=== PATIENT | male | born 1980 | race Caucasian/White ===

== ENCOUNTER → 2024-01-30 06:28 | Day surgery (SDC) | payer OTHER, SELFPAY | LOC: GI 06:28 | PROVIDERS: ATTENDING PHYSICIAN Internal Medicine | DX: K22.70 Barrett's esophagus without dysplasia (principal); K31.A0 Gastric intestinal metaplasia, unspecified; R13.10 Dysphagia, unspecified | CPT/HCPCS: 43249; 88305; 88342 ==

== ENCOUNTER → 2024-04-26 06:24 | Day surgery (SDC) | payer OTHER, SELFPAY | LOC: GI 06:24 | PROVIDERS: ATTENDING PHYSICIAN Internal Medicine | DX: K22.70 Barrett's esophagus without dysplasia (principal) | CPT/HCPCS: 43239; 88305 ==

== ENCOUNTER → 2024-06-27 16:21 | Outpatient (REF) | payer OTHER, SELFPAY | LOC: HWRAD 16:21 | PROVIDERS: ATTENDING PHYSICIAN Chiropractor; FAMILY PHYSICIAN Student in an Organized Health Care Education/Training Program | DX: M54.2 Cervicalgia (principal); M54.6 Pain in thoracic spine | CPT/HCPCS: 72050; 72072 ==

== ENCOUNTER 2024-11-28 05:25 | Inpatient (IN) | payer OTHER, SELFPAY ==
[2024-11-27 23:51] VITALS: BP 169/96
[2024-11-28] VITALS (23 sets, daily range): BP systolic 139–190; BP diastolic 76–109; BMI 33.1
--- NOTE | 2024-11-28 01:03 | ED.GENMED ---
History of Present Illness
General
Chief Complaint: Swelling
Source: patient
Exam Limitations: none
Time Seen by Provider: 11/28/24 00:27
Nursing documentation reviewed up to this point in time: agreed with
History of Present Illness
History of Present Illness:
44-year-old male presents to the emergency with right facial swelling. Patient states that approximately 3 weeks ago he had 4 dental posts placed. Since that there have been no complications. He was started on Augmentin about a week ago for
nonrelated infection. Tonight around 7 PM he woke up with facial swelling. Patient denies difficulty breathing or difficulty swallowing. Has no other complaints. Takes amlodipine
Past History
Past History
ED Past Medical History: GERD, HTN, Other (has had back pain since 02/2011. Had MRI with 20% compression fx T5. Had f/u MRI done 2 weeks ago and states he now has 50% compmression fx T6, herniated disc and arthritis in the spine.) and Other
(Pinzon's esophagus, diverticulitis, GERD)
ED Past Surgical History: Cholecystectomy and Other ([place] teeth)
Social History
Tobacco: Smoker
Alcohol: Daily
Drug: None
Personal: Single
Living: with family
Employment: Employed
Phy Exam
General Physical Exam
General Presentation: well appearing and moderate distress
General age: appears stated age
General Skin: warm and dry
General Habitus: normal
General Mental: alert
ENT Exam
ENT Exam: neck supple, swallowing well and other (Right-sided facial swelling)
Cardiovascular Exam
Cardiovascular Exam: regular rate/rhythm and no edema
Musculoskeletal Exam
Musculoskeletal Exam: full ROM
Skin Exam
Skin Exam: normal color and warm/dry
Psychiatric Exam
Psychiatric Exam: normal mood/affect
Scores
Heart Failure Risk
Heart Failure Risk Score: Not Applicable
Sepsis
Sepsis Screening
Sepsis Assessment: Sepsis Ruled Out
Sepsis Screen
Sepsis Screen: Sepsis Ruled Out
Date: 11/28/24
Time: 06:15
Course
Orders/Labs/Results
Orders:
Orders
11/28/24 00:55
CT Facial Bones W/ Iv Contrast Urgent
Comment:
Reason For Exam: right swelliing'
11/28/24 00:59
CRP [C-Reactive Protein] Urgent
Complete Blood Count/With Diff Urgent
Lactic Acid Q4H
Comment: CANCEL 2nd LACTIC ACID IF 1st LACTIC ACID IS LESS THAN 2
Sedimentation Rate [Erythrocyte Sed Rate] Urgent
11/28/24 01:07
Diphenhydramine [Benadryl] 25 mg IV NOW STA
11/28/24 01:25
Acetaminophen Urgent
Comment: ADDED
Alcohol Urgent
Comprehensive Metabolic Panel Urgent
Hepatitis A IgM Antibody Urgent
Hepatitis B Core Ab, IgM Urgent
Hepatitis B Surface Antibody Urgent
Hepatitis B Surface Antigen Urgent
Hepatitis C Antibody Urgent
Lipase Urgent
Comment: ADD ON
Magnesium Urgent
Comment: ADDED
Procalcitonin Urgent
Comment: REDRAW
11/28/24 04:06
Piperacillin/Tazo 4.5 Gram [Zosyn] 4.5 gram in 100 ml IV NOW
11/28/24 04:10
Vancomycin [Vancocin] 2,000 mg 0.9% Sodium Chloride 500 ml [Nss] 500 ml IV NOW
11/28/24 04:11
Potassium Chloride [KCl] 40 meq 0.9% Sodium Chloride 250 ml [Nss] 250 ml IV NOW
11/28/24 04:49
Ketorolac [Toradol] 15 mg IV NOW STA
11/28/24 05:00
Add On- LAB Stat
Tests Added?: acetaminophen level, etoh level
Flush (0.9% Sodium Chloride) [Flush (Nss)] See Dose Instructions IV PER PROTOCOL
11/28/24 05:03
US Abdomen Complete/Upper Urgent
Comment:
Reason For Exam: new transaminitis, eval biliary obstruction
11/28/24 05:05
Admit/Transfer Patient As Directed
Co-Sign Provider:
Level of Care: Inpatient admission
Assign to:: Medical/Surgical
Physician / Group: hospitalist
Diagnosis: cellulitis
Reason for Hospitalization: cellulitis
Expected length of stay greater than two midnights?: Yes
ELOS- Estimated Length of Stay in days: 2
I certify the patient meets the requirements for IP care: Yes
PRN Pain Medication Management As Directed
May give lesser potent ordered pain med per pt: Yes
preference::
Protocol:: Medication orders for pain may be administered in a
manner that supports deferring to patient preference
when the pt is:
- Requesting an ordered lesser potent pain medication.
Least to most potent pain medications are defined
as: acetaminophen < NSAID < tramadol < opioids
(morphine, oxycodone, hydromorphone).
- Requesting a lesser dose of the same medication IF
ORDERED.
- Requesting a less intrusive route of administration
if both routes are prescribed by the provider (PO <
IV).
11/28/24 05:06
Code Status As Directed
Resuscitation Status: Full Code
11/28/24 05:09
Potassium Chloride [KCl] 40 meq PO NOW STA
Abnormal Lab Results
11/28/24 11/28/24
00:59 01:25
RBC 4.24 L 10^6/uL
(4.70-6.10)
Hgb 12.8 L g/dL
(13.0-18.0)
Hct 38.0 L %
(39.0-52.0)
RDW 17.7 H %
(11.5-14.5)
Plt Count 111 L 10^3/uL
(130-400)
Absolute Monos (auto) 0.8 H 10^3/uL
(0.1-0.6)
Neutrophils % 35.5 L %
(42.2-75.2)
Monocytes % 13.9 H %
(1.7-9.3)
Sodium 148 H mmol/L
(135-145)
Potassium 2.6 L* mmol/L
(3.5-5.1)
Chloride 109 H mmol/L
(98-107)
Carbon Dioxide 31 H mmol/L
(22-30)
BUN 8 L mg/dl
(9-20)
Creatinine 0.6 L mg/dL
(0.7-1.3)
Calcium 8.3 L mg/dl
(8.4-10.2)
AST 280 H U/L
(17-59)
ALT 107 H U/L
(0-50)
Lipase 347 H U/L
(23-300)
Acetaminophen < 10 L ug/ml
(10-30)
11/28/24 00:59
11/28/24 05:01
Vital Signs
Initial and Last Documented VS:
Initial Vital Signs
Temp Pulse Resp Pulse Ox
98.6 F 114 20 95
11/27/24 23:49 11/27/24 23:49 11/27/24 23:49 11/27/24 23:49
Last Documented Vital Signs
Temp Pulse Resp BP Pulse Ox
98.6 F 88 19 155/98 96
11/27/24 23:49 11/28/24 04:00 11/28/24 04:00 11/28/24 04:00 11/28/24 04:00
*Radiology
Radiology exam reviewed: radiology read reviewed
*Pulse Oximetry
Patient hypoxic: no
*Critical Care Note
Total Time (30-74mins, 75-104mins- exclusive of procedures): Not Applicable
ED Attending Note
-
Portions of this chart may have been created with voice recognition software.� Occasional wrong word or��sound alike� substitutions may have occurred due to the inherent limitations of voice recognition software.
Discharge Plan
Departure
Patient Disposition: Admit
Date of Disposition: 11/28/24
Time of Disposition: 04:08
Admit to: Telemetry
Presentation/result/management discussed w/ accepting MD/DO: Hospitalist
Discharge Problem:
Hypokalemia, Cellulitis of face, Alcohol intoxication
Interventions
Interventions:
*Risk Screen - Suicide Last Done: 11/27/24 23:45
*General Assessment Last Done: 11/27/24 23:51
*Neglect/Abuse Screening Last Done: 11/27/24 23:45
*ED- Fall Risk Assessment Last Done: 11/28/24 00:47
*ED COVID-19 Vaccine History Last Done: 11/27/24 23:51
ED- Cardiac Assessment Last Done: 11/28/24 00:47
ED- Pulmonary Assessment Last Done: 11/28/24 00:47
ED-Skin Assessment Last Done: 11/28/24 00:47
[2024-11-28] MEDS: BENADRYL 25 MG IV (01:11)
[2024-11-28 01:15] LABS: % Basophils 0.7 % (0-2); % Eosinophils 2.1 % (0-6); % Immature Granulocytes 0.5 % (0-0.5); % Lymphocytes 47.3 % (20.5-51.1); % Monocytes 13.9 % (1.7-9.3); % Neutrophils 35.5 % (42.2-75.2); Absolute Eosinophils 0.1 10^3/uL (0-0.7); Absolute Lymphocytes 2.7 10^3/uL (1.2-3.4); Absolute Monocytes 0.8 10^3/uL (0.1-0.6); Absolute Neutrophils 2.1 10^3/uL (1.4-6.5); Hemoglobin 12.8 g/dL (13.0-18.0); Mean Corp Hgb Conc. 33.7 g/dL (33.0-37.0); Mean Corpuscular Hgb 30.2 pg (27.0-31.0); Mean Corpuscular Volume 89.6 fL (80.0-94.0); Mean Platelet Volume 9.7 fL (7.4-10.4); Nucleated Red Blood Cells % 0 % (-); Platelet Count 111 10^3/uL (130-400); Red Blood Cell Count 4.24 10^6/uL (4.70-6.10); Red Cell Dist. Width 17.7 % (11.5-14.5); White Blood Cell Count 5.8 10^3/uL (4.8-10.8)
[2024-11-28 01:32] LABS: C-Reactive Protein < 5.00 mg/L (0.0-10.00)
[2024-11-28 01:40] LABS: Erythrocyte Sed Rate 4 mm/hour (0-20)
[2024-11-28 01:51] LABS: ALT (SGPT) 107 U/L (0-50); AST (SGOT) 280 U/L (17-59); Albumin 3.5 g/dl (3.5-5.0); Alkaline Phosphatase 101 U/L (38-126); Blood Urea Nitrogen 8 mg/dl (9-20); Calcium 8.3 mg/dl (8.4-10.2); Carbon Dioxide 31 mmol/L (22-30); Chloride 109 mmol/L (98-107); Estimated Creatinine Clearance > 125 ml/min; Glucose 89 mg/dl (70-99); Potassium 2.6 mmol/L (3.5-5.1); Sodium 148 mmol/L (135-145); Total Bilirubin 0.6 mg/dl (0.2-1.3); Total Protein 6.4 g/dl (6.3-8.2); eGFR > 60.00
[2024-11-28 01:59] LABS: Procalcitonin < 0.05 ng/ml (0.0-0.25)
[2024-11-28] MEDS: ZOSYN 100 IV (04:10)
--- NOTE | 2024-11-28 04:33 | HPS.HSE ---
Family Physician
-
Family Physician: Jaky Rizo MD
Chief Complaint
-
Lip swelling and pain
History of Present Illness
This is a 45-year-old male with past medical history significant for alcohol dependence, last alcohol drink is as well as 2 years ago, GERD, gallstones s/p cholecystectomy, childhood asthma, hypertension who presents to the emergency department with
approximately 1 day of left-sided upper lip swelling and pain.
Patient reported that over the last 10 days had URI symptoms with cough congestion shortness of breath hence completed 10-day course of Augmentin. Patient reports improvement in symptoms and resolution of his cough. He also received steroids.
Patient reports that he had dental implants done about 2 to 3 weeks ago. Outside of that no other recent changes. He tried to go to sleep at night and then awoke with swelling pain and some redness of his left upper lip. He has no knowledge of
any bleeding. He denies any biting.
He denies any recent diarrhea, he denies vomiting. He denies any recreational drug use. He showed me that his previous labs in October were all normal with normal LFTs and normal electrolytes and BUN/creatinine.
He denies any abdominal pain. He does report some left-sided subscapular pain that is likely related to his URI and cough. He has not had any fevers or chills since the swelling. He denies any numbness or tingling.
In the emergency department he was afebrile, blood pressure was 155/98 with a pulse of 88 and was satting 96% on room air. His CBC was unremarkable. Electrolytes notable for a potassium of 2.6 but otherwise unremarkable. He is AST is now elevated
to 80 and ALT 102 from recent baselines of 20 and 17. Inflammatory markers were negative.
A CT of the face shows right premaxillary/upper lip soft tissue swelling without evidence of organized collection, findings represent cellulitis and/or phlegmon formation. Airway remained patent, normal appearance of the orbits.
Medical History
Past Medical History
Past Medical History: Reports Other (GERD, HTN, Other (has had back pain since fall 02/2011. Had MRI with 20% compression fx T5. Had f/u MRI done 2 weeks ago and states he now has 50% compmression fx T6, herniated disc and arthritis in the spine.) a)
Past Surgical History: Reports Cholecystectomy
Social History
Tobacco: Former Smoker
Alcohol: Former
Personal: Single
Family History
Family History: Not pertinent
Allergies / Home Medications
Allergies reflects when Allergies were last updated in [email or web address].
Home Medications with original date entered in [email or web address]
Allergy/Medication List:
Allergies
Allergy/AdvReac Type Severity Reaction Status Date / Time
mint Allergy HEADACHE Verified 11/27/24 23:46
orange Allergy HEADACHE Verified 11/27/24 23:46
pollen extracts Allergy nasal Verified 11/27/24 23:46
symptoms -
seasonal
allergies
Home Medications
Wellbutrin 300 mg tablet, 300 mg p.o. daily
Esomeprazole 20 mg tablet, 20 mg p.o. daily
Review of Systems
-
History Source: Patient
Constitutional: Reports No Symptoms
EENT: Reports Mouth Pain
Respiratory: Reports No Symptoms
Cardiac: Reports No Symptoms
Abdomen/GI: Reports No Symptoms
: Reports No Symptoms
Musculoskeletal: Reports No Symptoms
Skin: Reports No Symptoms
Neurological: Reports No Symptoms
Endocrine: Reports No Symptoms
Hematologic/Lymphatic: Reports No Symptoms
Psych: Reports No Symptoms
Physical Exam
Vital Signs
Vital Signs
Temp Pulse Resp BP Pulse Ox
98.6 F 88 19 155/98 96
11/27/24 23:49 11/28/24 04:00 11/28/24 04:00 11/28/24 04:00 11/28/24 04:00
Physical Exam
General: Well Developed, Well Nourished, No Apparent Distress and Comfortable
HEENT: NormoCephalic, Anicteric, Moist mucous membranes, Atraumatic and Other (left upper lip swelling, tenderness to palpation, mild erythema, no tongue swelling, no exudate noted )
Respiratory: Clear
Cardiac: S1/S2 and Regular Rhythm
Breast: Deferred by me
GI: Soft, Non Tender, Non Distended and Normal Bowel Sounds
Rectal: Deferred by Provider
Genito-urinary: Deferred by me
Musculoskeletal: No Clubbing, No Cyanosis and No Edema
Skin: Warm
Neuro: AO x 3
Hematologic/Lymphatic: No Lymphadenopathy
Psych: Calm
Laboratory Results
-
11/28/24 00:59
11/28/24 01:25
Laboratory Results
Lactic Acid Cancelled 11/28/24 05:00
Total Bilirubin 0.6 mg/dl (0.2-1.3) 11/28/24 01:25
AST 280 U/L (17-59) H 11/28/24 01:25
ALT 107 U/L (0-50) H 11/28/24 01:25
Alkaline Phosphatase 101 U/L (38-126) 11/28/24 01:25
Data Reviewed
-
CT Scan: Report Reviewed by me
Lab Data: Labs Reviewed by me
Old Records: Reviewed
Impression/Plan
-
IMPRESSION:
44 y.o male with h/o etoh dependence and elevated lfts, now sober for 2 years presenting with lip pain and swelling. CT scan c/w cellulitis. Recent dental implants on the upper teetch. He has been on augmentin for URI for the last 10 days. In
addition he has lab abnormalitie with hypokalemia and transaminitis. Bilirubin and alk phos normal.
PLAN:
1. Cellulitis - cellulitis w/o abscess. Developed lesion despite already being on augmentin. Not unreasonable to develop new infection on abx but less likely
- admit to med/surg
- cover with vancomycin for now
- pain control
- ID consultation
2. Hypokalemia - K 2.6, was normal in October. Denies fluid losses or low intake. No diuretics. No etoh
- check mag level
- replete K IV and PO
- increase K intake (diet and or oral supplementation daily)
3. Transaminitis - new transaminitis since October 2024. AST/ALT normal at that time. Denies etoh stating last drink was in 2022. Reports dental implants one month ago and was on tylenol 1g q 4 -6 hours daily for about 1 week. He has since come
off that but due to recent URI has been taking tylenol pm 500mg to 1 g HS. Possible repeated supratherapeutic tylenol but does not strictly meets criteria, will consider acetylcysteine only if tylenol level > 20 mcg/ml. Other etiology is DILI due
to augmentin
- check acetaminophen level, etoh level
- ruq u/s and hepatitis panel
- trend lfts
- if etoh negative GI consultation, otherwise likely etoh induced transaminitis and place on MSAS withdrawal protocol
DVT PPX - lovenox sq
Code status - Full Code
[2024-11-28] MEDS: VANCOCIN 540 MG IV (04:44)
[2024-11-28] MEDS: KCL 270 MEQ IV (04:46)
[2024-11-28] MEDS: TORADOL 15 MG IV (05:22)
[2024-11-28] MEDS: KCL 40 MEQ PO (05:22)
[2024-11-28 05:47] LABS: Acetaminophen < 10 ug/ml (10-30); Magnesium 1.7 mg/dl (1.6-2.3)
[2024-11-28] MEDS: FLUSH (NSS) 1 FLUSH IV (06:00)
[2024-11-28 06:06] LABS: Alcohol 396 mg/dl; Lipase 347 U/L (23-300)
[2024-11-28 06:56] LABS: Lipase 286 U/L (23-300)
--- NOTE | 2024-11-28 09:28 | W.PN.HOSP.TC ---
Today's Communication/Plan
-
Continue vancomycin pending ID evaluation.
Alcohol withdrawal protocol.
Check magnesium, hemoglobin A1c.
Replete potassium
Follow LFT closely
Assessment / Plan
Assessment / Plan
Impression:
Facial cellulitis nonpurulent.
Alcohol use disorder.
Alcohol withdrawal.
Hepatic steatosis with elevated transaminases.
Hypokalemia
Obesity with BMI of 33
Plan:
Functional cellulitis without purulence.
No evidence of generalized infection, sepsis ruled out.
No clinical or radiologic evidence of airway involvement or compromise
CT scan with no evidence of bony abnormalities or collection.
Denies trauma
Recent implants
Reported progressive fascial edema, pain despite of Augmentin therapy prior to admission per
Initiated on vancomycin, status post single dose of Zosyn with dramatic improvement since admission.
ID evaluation pending.
Check hemoglobin A1c
Elevated transaminases
Hepatic steatosis on ultrasound.
Likely multifactorial due to alcohol, possibly in conjunction with DILI related to Tylenol and Augmentin
Tylenol level undetectable.
Continue follow-up closely.
Hydration.
Minimize potentially hepatotoxic medications.
Alcohol use disorder, suspect severe
Alcohol level on admission over 390
Patient reports withdrawal symptoms including chills and tremors.
Initiated on alcohol withdrawal protocol with MSAS/lorazepam, phenobarbital taper.
Hypokalemia.
Check magnesium level.
Replete.
Follow with BMP
Anticipated Discharge: 24 - 48 hours
Subjective/Interval History
-
Date of Service: November 28, 2024
Objective Data
-
Labs:
Laboratory Results
11/28/24 11/28/24 11/28/24
00:59 01:25 05:01
WBC 5.8
Hgb 12.8 L
Hct 38.0 L
Plt Count 111 L
Sodium Cancelled 148 H Cancelled
Potassium Cancelled 2.6 L* Cancelled
Chloride Cancelled 109 H Cancelled
Carbon Dioxide Cancelled 31 H Cancelled
BUN Cancelled 8 L Cancelled
Creatinine Cancelled 0.6 L Cancelled
Glucose Cancelled 89 Cancelled
Calcium Cancelled 8.3 L Cancelled
Total Bilirubin Cancelled 0.6
AST Cancelled 280 H
ALT Cancelled 107 H
Alkaline Phosphatase Cancelled 101
11/28/24
14:00
WBC
Hgb
Hct
Plt Count
Sodium Pending
Potassium Pending
Chloride Pending
Carbon Dioxide Pending
BUN Pending
Creatinine Pending
Glucose Pending
Calcium Pending
Total Bilirubin
AST
ALT
Alkaline Phosphatase
Vital Signs:
Vital Signs
Temp Pulse Resp BP Pulse Ox
98.4 F 102 25 160/102 98
11/28/24 08:02 11/28/24 08:02 11/28/24 08:02 11/28/24 08:02 11/28/24 08:02
Physical Exam
-
General: Well Developed and No Apparent Distress
HEENT: Normocephalic, Atraumatic, Moist Mucous Membranes and Other (Mild erythema, edema and induration in the right upper lip area. No fluctuance. No ulcers)
Respiratory: Clear to Auscultation
Cardiac: Regular Rhythm and S1/S2; Negative Murmur, Rub or Gallop
GI: Soft, Nontender, Nondistended and Normal Bowel Sounds; Negative Organomegaly
Rectal: Deferred by Provider
Musculoskeletal: No Clubbing, No Cyanosis and No Edema
Skin: Negative Rash
Neuro: Awake, Alert, Oriented, Tremors and Nonfocal/Grossly Intact
[2024-11-28] MEDS: PHENOBARBITAL 104 MG IV (09:29)
[2024-11-28] MEDS: NSS 1000 IV ×2 (09:43→21:44)
[2024-11-28] MEDS: FOLVITE 1 MG PO (09:49)
[2024-11-28] MEDS: PROTONIX 40 MG PO (09:49)
[2024-11-28] MEDS: KCL 20 MEQ PO ×2 (09:49→21:17)
[2024-11-28] MEDS: THIAMINE INJECTION 200 MG IV ×2 (09:49→21:16)
--- NOTE | 2024-11-28 09:53 | PHA.VAN.IN ---
Assessment
- Assessment
Renal Function: Appears similar to baseline (0.6)
Concomitant Antimicrobials: Piperacillin/Tazobactam x1 dose
AUC Dosing Plan
- Dosing Variables
Dosing Weight (kg): 98.6
Dosing CrCl (ml/min): 125
Vd coefficient (L/kg): 0.6
- Empiric Dosing
Initial / Loading Dose: Vanco 2000mg loading administered 11/28/24 0444
Maintenance Regimen: Vanco 1500mg Q12H Starting 11/28/24 1800
Estimated AUC (mcg*h/mL): 507
Estimated Peak (mcg*h/mL): 34.9
Estimated Trough (mcg/ml): 11.2
Estimated Half Life (H): 6.4
- Monitoring
No levels ordered at this time: Consider in the next few days
Pharmacokinetics Vancomycin I
- -
Patient Age: 44
Patient Sex: Male
Vancomycin Day #: 1
Indication: Skin And Soft Tissue
Requesting Provider: Deana
Height / Weight:
Height 5 ft 8 in
Actual Weight 98.6 kg
- Vital Signs / Lab Results
Temp Pulse Resp BP Pulse Ox
98.4 F 102 25 160/102 98
11/28/24 08:02 11/28/24 08:02 11/28/24 08:02 11/28/24 08:02 11/28/24 08:02
Lab Results - Hematology
11/28/24
00:59
WBC 5.8
Lab Results - Chemistry
11/28/24 11/28/24 11/28/24
00:59 01:25 05:01
BUN Cancelled 8 L Cancelled
Creatinine Cancelled 0.6 L Cancelled
Estimated Creat Clear Cancelled > 125 Cancelled
Albumin Cancelled 3.5
11/28/24 11/28/24
00:59 05:00
Lactic Acid 1.0 Cancelled
[2024-11-28] MEDS: WELLBUTRIN XL (24 hour extended release) 300 MG PO (10:56)
[2024-11-28] MEDS: ATIVAN 1 MG IV ×4 (12:25→23:54)
[2024-11-28 15:17] LABS: Blood Urea Nitrogen 7 mg/dl (9-20); Calcium 7.6 mg/dl (8.4-10.2); Carbon Dioxide 26 mmol/L (22-30); Chloride 102 mmol/L (98-107); Estimated Creatinine Clearance > 125 ml/min; Glucose 84 mg/dl (70-99); Potassium 2.8 mmol/L (3.5-5.1); Sodium 141 mmol/L (135-145); eGFR > 60.00
[2024-11-28] MEDS: PHENOBARBITAL 97.5 MG IV ×2 (17:45→21:22)
[2024-11-28] MEDS: LOVENOX 40 MG SC (17:46)
[2024-11-28] MEDS: VANCOCIN 530 MG IV (17:51)
[2024-11-28 19:52] LABS: Hepatitis B Surface Antigen Negative (Negative)
[2024-11-28 20:10] LABS: Hepatitis B Surface Antibody Negative; Hepatitis C Antibody Negative (Negative)
[2024-11-28 21:19] LABS: Hepatitis A IgM Antibody Negative (Negative); Hepatitis B Core Ab, IgM Negative (Negative)
[2024-11-28] MEDS: LOPRESSOR 2.5 MG IV (23:54)
[2024-11-29] VITALS (7 sets, daily range): BP systolic 150–167; BP diastolic 94–102
[2024-11-29] MEDS: VANCOCIN 530 MG IV ×2 (06:05→17:09)
--- NOTE | 2024-11-29 08:04 | PHA.VAN.FU ---
Vancomycin Assessment / Plan
- Assessment
Renal Function: Stable (0.5)
WBC's are: WNL (5.8 (No new labs))
In the past 24 hrs, patient has been: Afebrile
- Dosing Plan
Continue: Vanco 1500mg Q12H
- Monitoring Plan
No level(s) ordered at this time: Consider in the next few days
- Follow Up
Pharmacy will continue to follow.
Vancomycin Follow UP
- -
Patient Age: 44
Patient Sex: Male
Vancomycin Day #: 2
Indication: Skin And Soft Tissue
Requesting Provider: Deana
Height / Weight:
Height 5 ft 8 in
Actual Weight 98.6 kg
- Vital Signs / Lab Results
Temp Pulse Resp BP Pulse Ox
98.4 F 82 18 150/95 98
11/29/24 07:15 11/29/24 07:15 11/29/24 07:15 11/29/24 07:15 11/29/24 07:15
Lab Results - Hematology
11/28/24
00:59
WBC 5.8
Lab Results - Chemistry
11/28/24 11/28/24 11/28/24
00:59 01:25 05:01
BUN Cancelled 8 L Cancelled
Creatinine Cancelled 0.6 L Cancelled
Estimated Creat Clear Cancelled > 125 Cancelled
Albumin Cancelled 3.5
11/28/24
14:39
BUN 7 L
Creatinine 0.5 L
Estimated Creat Clear > 125
Albumin
11/28/24 11/28/24
00:59 05:00
Lactic Acid 1.0 Cancelled
[2024-11-29] MEDS: WELLBUTRIN XL (24 hour extended release) 300 MG PO (08:24)
[2024-11-29] MEDS: PROTONIX 40 MG PO (08:24)
[2024-11-29] MEDS: THIAMINE INJECTION 200 MG IV ×2 (08:24→20:28)
[2024-11-29] MEDS: KCL 20 MEQ PO ×2 (08:24→20:25)
[2024-11-29] MEDS: FOLVITE 1 MG PO (08:24)
[2024-11-29] MEDS: PHENOBARBITAL 97.5 MG IV ×3 (08:25→22:20)
[2024-11-29] MEDS: NSS 1000 IV (08:33)
[2024-11-29] MEDS: ATIVAN 1 MG IV ×2 (09:01→20:44)
[2024-11-29] MEDS: NSS (PRESERVATIVE FREE) 0.5 ML IV (09:01)
--- NOTE | 2024-11-29 10:23 | W.PN.HOSP.TC ---
Today's Communication/Plan
-
Possible discharge later today or early tomorrow if continued to improve withdrawal symptoms
Assessment / Plan
Assessment / Plan
Impression:
This is a 45-year-old male with past medical history significant for alcohol dependence, GERD, gallstones s/p cholecystectomy, childhood asthma, hypertension who presents to the emergency department with approximately 1 day of left-sided upper lip
swelling and pain.
patient admitted with facial cellulitis failing outpatient Augmentin.� CT with no evidence of collection of bone involvement.� Dramatically improved with vancomycin.� Severe alcohol use disorder with impending DT.� Alcohol level 396, although
patient is already with tremors and chills.� Initiated on alcohol withdrawal protocol with IV phenobarbital.
Next day alcohol withdrawal improved, cellulitis improved, potassium still low replace
Assessment/Plan:
Facial cellulitis without purulence.
No evidence of generalized infection, sepsis ruled out.
No clinical or radiologic evidence of airway involvement or compromise
CT scan with no evidence of bony abnormalities or collection.
Denies trauma
Recent implants
Reported progressive fascial edema, pain despite of Augmentin therapy prior to admission per
Initiated on vancomycin, status post single dose of Zosyn with dramatic improvement since admission.
ID evaluation pending.
Hemoglobin A1c 5.0
Alcohol use disorder, suspect severe
Alcohol level on admission over 390
Patient reports withdrawal symptoms including chills and tremors.
Initiated on alcohol withdrawal protocol with MSAS/lorazepam, phenobarbital taper.
Will be discharged home gabapentin tapering.
Transaminitis
Abdominal ultrasound shows Mild hepatomegaly with findings suggesting diffuse fatty liver
Likely multifactorial due to alcohol, possibly in conjunction with DILI related to Tylenol and Augmentin
Tylenol level undetectable.
Continue to monitor.
Hypokalemia.
Replace and keep monitor.
Anxiety/depression.
Continue home medications.
History of DVT.
Total time spent on today's encounter was 65 minutes which included time spent in counseling the patient/family regarding diagnosis and treatment plan as listed above, goals of care, and symptom management. Case was discussed with nursing staff,
specialists, and care coordinators/case management. All labs and imaging personally reviewed by me. Remainder the time spent in detailed review of previous records, lab data, imaging, and other medical provider documentation.
Anticipated Discharge: Within 24 hours
Subjective/Interval History
-
Date of Service: November 29, 2024
Patient seen and examined at bedside, denies any chest pain or shortness of breath, no abdominal pain, no nausea, no vomiting, no diarrhea or constipation.
Patient redness improved, patient still potassium and mild alcohol withdrawal.
Objective Data
-
Vital Signs:
Vital Signs
Temp Pulse Resp BP Pulse Ox
98.4 F 82 18 150/95 98
11/29/24 07:15 11/29/24 07:15 11/29/24 07:15 11/29/24 07:15 11/29/24 07:15
I&O
11/28/24 11/29/24 11/30/24
06:59 06:59 06:59
Intake Total 960 / 960
Balance 960 / 960
Physical Exam
-
General: Well Developed, Well Nourished, No Apparent Distress and Comfortable
HEENT: Normocephalic, Atraumatic, Moist Mucous Membranes, No Ptosis, PERRLA and Nose Appears Normal
Respiratory: Clear to Auscultation and Non Labored Respirations
Cardiac: Regular Rhythm and S1/S2
Breast: Deferred by me
GI: Soft, Nontender, Nondistended and Normal Bowel Sounds
Genito-urinary: No Costovertebral Tender
Musculoskeletal: No Clubbing, No Cyanosis and No Edema
Skin: Warm
Neuro: Awake, Alert, Oriented, AO x 3 and No Motor Deficits
Psych: Calm
Data Reviewed
-
Diagnostic Radiology: Image personally visualized and interpreted and Report Reviewed by me
CT Scan: Image personally visualized and interpreted and Report Reviewed by me
Ultrasound: Image personally visualized and interpreted and Report Reviewed by me
MRI: Image personally visualized and interpreted and Report Reviewed by me
Medical Tests (Nuc Med, Echo etc): Image personally visualized and interpreted and Report Reviewed by me
Labs: Labs Reviewed by me
Old Records: Reviewed
[2024-11-29 11:05] LABS: Hemoglobin 12.8 g/dL (13.0-18.0); Mean Corp Hgb Conc. 33.7 g/dL (33.0-37.0); Mean Corpuscular Hgb 30.3 pg (27.0-31.0); Red Blood Cell Count 4.22 10^6/uL (4.70-6.10); Red Cell Dist. Width 17.2 % (11.5-14.5); White Blood Cell Count 4.9 10^3/uL (4.8-10.8)
[2024-11-29 11:27] LABS: Mean Platelet Volume 9.9 fL (7.4-10.4); Platelet Count 70 10^3/uL (130-400)
[2024-11-29 12:47] LABS: ALT (SGPT) 95 U/L (0-50); AST (SGOT) 153 U/L (17-59); Albumin 4.2 g/dl (3.5-5.0); Alkaline Phosphatase 104 U/L (38-126); Blood Urea Nitrogen 7 mg/dl (9-20); Calcium 7.5 mg/dl (8.4-10.2); Carbon Dioxide 25 mmol/L (22-30); Chloride 100 mmol/L (98-107); Estimated Creatinine Clearance > 125 ml/min; Glucose 136 mg/dl (70-99); Potassium 2.5 mmol/L (3.5-5.1); Sodium 136 mmol/L (135-145); Total Bilirubin 1.3 mg/dl (0.2-1.3); Total Protein 7.1 g/dl (6.3-8.2); eGFR > 60.00
[2024-11-29] MEDS: KCL 270 MEQ IV ×2 (14:07→19:12)
--- NOTE | 2024-11-29 15:19 | CM ---
Patient seen at bedside
IA completed
Lives at home with his parents in a 2 story home, 1 step to enter, 1st floor set up
PLOF: independent
Denies DME
Denies VN/Rehab
Declines [facility] resources
PCP: Mayo Rizo
Pharmacy: [facility]
PLAN: home, declines [facility]
mother to transport
[2024-11-29] MEDS: LOVENOX 40 MG SC (17:08)
[2024-11-29] MEDS: NSS IV (20:03)
[2024-11-30 03:00] VITALS: BP 159/99
[2024-11-30] MEDS: VANCOCIN 530 MG IV (05:55)
[2024-11-30 06:52] LABS: Hemoglobin 12.4 g/dL (13.0-18.0); Mean Corp Hgb Conc. 33.5 g/dL (33.0-37.0); Mean Corpuscular Hgb 30.1 pg (27.0-31.0); Mean Corpuscular Volume 89.8 fL (80.0-94.0); Red Blood Cell Count 4.12 10^6/uL (4.70-6.10); Red Cell Dist. Width 17.2 % (11.5-14.5); White Blood Cell Count 4.5 10^3/uL (4.8-10.8)
[2024-11-30 07:02] LABS: ALT (SGPT) 78 U/L (0-50); AST (SGOT) 94 U/L (17-59); Albumin 3.6 g/dl (3.5-5.0); Alkaline Phosphatase 92 U/L (38-126); Blood Urea Nitrogen 10 mg/dl (9-20); Calcium 8.2 mg/dl (8.4-10.2); Carbon Dioxide 24 mmol/L (22-30); Chloride 107 mmol/L (98-107); Estimated Creatinine Clearance > 125 ml/min; Glucose 91 mg/dl (70-99); Magnesium 1.3 mg/dl (1.6-2.3); Sodium 139 mmol/L (135-145); Total Bilirubin 1.1 mg/dl (0.2-1.3); Total Protein 6.5 g/dl (6.3-8.2); eGFR > 60.00
[2024-11-30 07:25] VITALS: BP 161/97
[2024-11-30 07:40] LABS: Mean Platelet Volume 11.2 fL (7.4-10.4); Platelet Count 63 10^3/uL (130-400)
[2024-11-30] MEDS: KCL 20 MEQ PO (08:24)
[2024-11-30] MEDS: THIAMINE INJECTION 200 MG IV (08:24)
[2024-11-30] MEDS: PROTONIX 40 MG PO (08:24)
[2024-11-30] MEDS: KCL 270 MEQ IV (08:24)
[2024-11-30] MEDS: WELLBUTRIN XL (24 hour extended release) 300 MG PO (08:24)
[2024-11-30] MEDS: PHENOBARBITAL 97.5 MG IV (08:25)
[2024-11-30] MEDS: FOLVITE 1 MG PO (08:26)
--- NOTE | 2024-11-30 09:24 | PHA.VAN.FU ---
Vancomycin Assessment / Plan
- Assessment
Renal Function: Stable (0.5)
WBC's are: WNL (4.5)
- Dosing Plan
Continue: Vanco 1500mg Q12H
- Monitoring Plan
Peak Level: 11/30/24 2130
Trough Level: 12/01/24 0530
- Follow Up
Pharmacy will continue to follow.
Vancomycin Follow UP
- -
Patient Age: 44
Patient Sex: Male
Vancomycin Day #: 3
Indication: Skin And Soft Tissue
Requesting Provider: Deana
Height / Weight:
Height 5 ft 8 in
Actual Weight 98.6 kg
- Vital Signs / Lab Results
Temp Pulse Resp BP Pulse Ox
98.2 F 83 16 161/97 99
11/30/24 07:25 11/30/24 07:25 11/30/24 07:25 11/30/24 07:25 11/30/24 07:25
Lab Results - Hematology
11/28/24 11/29/24 11/30/24
00:59 10:52 06:18
WBC 5.8 4.9 4.5 L
Lab Results - Chemistry
11/28/24 11/28/24 11/28/24
00:59 01:25 05:01
BUN Cancelled 8 L Cancelled
Creatinine Cancelled 0.6 L Cancelled
Estimated Creat Clear Cancelled > 125 Cancelled
Albumin Cancelled 3.5
11/28/24 11/29/24 11/29/24
14:39 10:52 13:00
BUN 7 L 7 L Cancelled
Creatinine 0.5 L 0.5 L Cancelled
Estimated Creat Clear > 125 > 125 Cancelled
Albumin 4.2
11/30/24
06:18
BUN 10
Creatinine 0.5 L
Estimated Creat Clear > 125
Albumin 3.6
11/28/24 11/28/24
00:59 05:00
Lactic Acid 1.0 Cancelled
Microbiology Results
11/28/24 10:59 MRSA Screen - Final
Nose No Methicillin Resistant Staphylococcus aureus isolated.
[2024-11-30 11:25] VITALS: BP 148/95
--- NOTE | 2024-11-30 12:42 | W.PN.HOSP.TC ---
Today's Communication/Plan
-
Discharge home today.
Assessment / Plan
Assessment / Plan
Impression:
This is a 45-year-old male with past medical history significant for alcohol dependence, GERD, gallstones s/p cholecystectomy, childhood asthma, hypertension who presents to the emergency department with approximately 1 day of left-sided upper lip
swelling and pain.
patient admitted with facial cellulitis failing outpatient Augmentin.� CT with no evidence of collection of bone involvement.� Dramatically improved with vancomycin.� Severe alcohol use disorder with impending DT.� Alcohol level 396, although
patient is already with tremors and chills.� Initiated on alcohol withdrawal protocol with IV phenobarbital.
Next day alcohol withdrawal improved, cellulitis improved, potassium still low replace.
Alcohol withdrawal symptoms improved, potassium still low, will replace and possible discharge home on oral supplement.
Assessment/Plan:
Facial cellulitis without purulence.
No evidence of generalized infection, sepsis ruled out.
No clinical or radiologic evidence of airway involvement or compromise
CT scan with no evidence of bony abnormalities or collection.
Denies trauma
Recent implants
Reported progressive fascial edema, pain despite of Augmentin therapy prior to admission per
Initiated on vancomycin, status post single dose of Zosyn with dramatic improvement since admission.
ID evaluation pending.
Hemoglobin A1c 5.0
11/30
Discharge on oral
Alcohol use disorder, suspect severe
Alcohol level on admission over 390
Patient reports withdrawal symptoms including chills and tremors.
Initiated on alcohol withdrawal protocol with MSAS/lorazepam, phenobarbital taper.
11/30
Will be discharged home gabapentin tapering.
Transaminitis
Abdominal ultrasound shows Mild hepatomegaly with findings suggesting diffuse fatty liver
Likely multifactorial due to alcohol, possibly in conjunction with DILI related to Tylenol and Augmentin
Tylenol level undetectable.
Continue to monitor.
Upper GI is out patient
Hypokalemia.
Replace and keep monitor.
Discharge home on oral potassium and follow-up labs after 1
Anxiety/depression.
Continue home medications.
History of DVT.
Total time spent on today's encounter was 65 minutes which included time spent in counseling the patient/family regarding diagnosis and treatment plan as listed above, goals of care, and symptom management. Case was discussed with nursing staff,
specialists, and care coordinators/case management. All labs and imaging personally reviewed by me. Remainder the time spent in detailed review of previous records, lab data, imaging, and other medical provider documentation.
Anticipated Discharge: Today
Subjective/Interval History
-
Date of Service: November 30, 2024
Overall patient feeling better but still potassium 3.0.
Ordered additional K rider.
Otherwise denies any chest pain or shortness of breath, no abdominal pain, no nausea, no vomiting, no diarrhea or constipation.
Objective Data
-
Labs:
Laboratory Results
11/30/24
06:18
WBC 4.5 L
Hgb 12.4 L
Hct 37.0 L
Plt Count 63 L
Sodium 139
Potassium 3.0 L
Chloride 107
Carbon Dioxide 24
BUN 10
Creatinine 0.5 L
Glucose 91
Calcium 8.2 L
Total Bilirubin 1.1
AST 94 H
ALT 78 H
Alkaline Phosphatase 92
Vital Signs:
Vital Signs
Temp Pulse Resp BP Pulse Ox
98.8 F 79 20 148/95 98
11/30/24 11:25 11/30/24 11:25 11/30/24 11:25 11/30/24 11:25 11/30/24 11:25
I&O
11/29/24 11/30/24 12/01/24
06:59 06:59 06:59
Intake Total 960 / 960 1500 / 1500
Output Total 1075 / 1075
Balance 960 / 960 425 / 425
Physical Exam
-
General: Well Developed, Well Nourished, No Apparent Distress and Comfortable
HEENT: Normocephalic, Atraumatic, Moist Mucous Membranes, No Ptosis, PERRLA and Nose Appears Normal
Respiratory: Clear to Auscultation and Non Labored Respirations
Cardiac: Regular Rhythm and S1/S2
Breast: Deferred by me
GI: Soft, Nontender, Nondistended and Normal Bowel Sounds
Genito-urinary: No Costovertebral Tender
Musculoskeletal: No Clubbing, No Cyanosis and No Edema
Skin: Warm
Neuro: Awake, Alert, Oriented, AO x 3 and No Motor Deficits
Psych: Calm
Data Reviewed
-
Diagnostic Radiology: Image personally visualized and interpreted and Report Reviewed by me
CT Scan: Image personally visualized and interpreted and Report Reviewed by me
Ultrasound: Image personally visualized and interpreted and Report Reviewed by me
MRI: Image personally visualized and interpreted and Report Reviewed by me
Medical Tests (Nuc Med, Echo etc): Image personally visualized and interpreted and Report Reviewed by me
Labs: Labs Reviewed by me
Old Records: Reviewed
--- NOTE | 2024-11-30 12:55 | W.DCSUMMARY ---
Discharge Summary
Discharge Data
Date of Admission: 11/28/24
Date of Discharge: 11/30/24
-
Pending Results: No
Hospital Course
Hospital course
This is a 45-year-old male with past medical history significant for alcohol dependence, GERD, gallstones s/p cholecystectomy, childhood asthma, hypertension who presents to the emergency department with approximately 1 day of left-sided upper lip
swelling and pain.
patient admitted with facial cellulitis failing outpatient Augmentin.� CT with no evidence of collection of bone involvement.� Dramatically improved with vancomycin.� Severe alcohol use disorder with impending DT.� Alcohol level 396, although
patient is already with tremors and chills.� Initiated on alcohol withdrawal protocol with IV phenobarbital.
Next day alcohol withdrawal improved, cellulitis improved, potassium still low replace.
Alcohol withdrawal symptoms improved, potassium still low, will replace and possible discharge home on oral supplement.
During hospitalization patient was treated from the follwing
Facial cellulitis without purulence.
No evidence of generalized infection, sepsis ruled out.
No clinical or radiologic evidence of airway involvement or compromise
CT scan with no evidence of bony abnormalities or collection.
Denies trauma
Recent implants
Reported progressive fascial edema, pain despite of Augmentin therapy prior to admission per
Initiated on vancomycin, status post single dose of Zosyn with dramatic improvement since admission.
ID evaluation pending.
Hemoglobin A1c 5.0
11/30
Discharge on oral
Alcohol use disorder, suspect severe
Alcohol level on admission over 390
Patient reports withdrawal symptoms including chills and tremors.
Initiated on alcohol withdrawal protocol with MSAS/lorazepam, phenobarbital taper.
11/30
Will be discharged home gabapentin tapering.
Transaminitis
Abdominal ultrasound shows Mild hepatomegaly with findings suggesting diffuse fatty liver
Likely multifactorial due to alcohol, possibly in conjunction with DILI related to Tylenol and Augmentin
Tylenol level undetectable.
Continue to monitor.
Upper GI is out patient
Hypokalemia.
Replace and keep monitor.
Discharge home on oral potassium and follow-up labs after 1
Anxiety/depression.
Continue home medications.
History of DVT.
Total time spent on today's encounter was 40 minutes which included time spent in counseling the patient/family regarding diagnosis and treatment plan as listed above, goals of care, and symptom management. Case was discussed with nursing staff,
specialists, and care coordinators/case management. All labs and imaging personally reviewed by me. Remainder the time spent in detailed review of previous records, lab data, imaging, and other medical provider documentation.
Anticipated Discharge: Today
Discharge Plan
-
Patient Disposition: Home (Routine Discharge)
Discharge Diagnosis/Procedures: Facial cellulitis.
Alcohol withdrawal.
Hypokalemia.
Elevated liver enzymes
Diet: As tolerated
Activity: As tolerated
Referrals:
Juan Milton MD [Active] - 12/18/24
Jaky Rizo MD [Family Provider] -
Prescriptions:
New
pantoprazole 20 mg Tablet,Delayed Release (Dr/Ec)
40 mg PO DAILY 30 Days Qty: 60 0RF
potassium chloride 20 mEq Tablet,Er Particles/Crystals
20 meq PO BID 14 Days Qty: 28 0RF
folic acid 1 mg Tablet
1 mg PO DAILY 30 Days Qty: 30 0RF
thiamine mononitrate (vit B1) 100 mg Tablet
100 mg PO DAILY 30 Days Qty: 30 0RF
doxycycline hyclate 100 mg capsule
100 mg PO BID Qty: 10 0RF
(DME) Basic metabolic panel
See Rx Instructions .Route .MEDSUPPLY Qty: 1 0RF
Rx Instructions:
To be done after 1 week.
Diagnosis: Hypokalemia
magnesium oxide 400 mg (241.3 mg magnesium) tablet
400 mg PO DAILY Qty: 30 0RF
Continued
trazodone 50 mg Tablet
50 mg PO HSPRN PRN (Reason: sleep)
ibuprofen 400 mg Tablet
400 mg PO Q6HPRN PRN (Reason: mild pain)
bupropion HCl [Wellbutrin XL] 300 mg Tablet Extended Release 24 Hr
300 mg PO DAILY
tadalafil 5 mg Tablet
5 mg PO DAILYPRN PRN (Reason: ED)
Discontinued
esomeprazole magnesium [Nexium] 40 mg Capsule,Delayed Release(Dr/Ec)
40 mg PO DAILY
Discharge Orders:
Discharge Patient (As Directed); Ordered 11/30/24
Ordered By: Selin Glass
Discharge Date and Time
Print Language: MALTESE
--- NOTE | 2024-11-30 13:01 | CM ---
Patient seen at bedside.
Offered [facility] resources - declines
Discharge today
PLAN: Home, declines [facility]
mom or girlfriend to transport
== END 2024-11-30 14:15 | disposition home or self-care (01) | DRG 603 ==
LOC: 3 WEST ACU 05:25
PROVIDERS: ADMITTING PHYSICIAN Internal Medicine; ATTENDING PHYSICIAN General Practice; EMERGENCY PHYSICIAN Student in an Organized Health Care Education/Training Program; FAMILY PHYSICIAN Student in an Organized Health Care Education/Training Program
DX: L03.211 Cellulitis of face (principal); F10.239 Alcohol dependence with withdrawal, unspecified; F17.200 Nicotine dependence, unspecified, uncomplicated; E87.6 Hypokalemia; E66.9 Obesity, unspecified; Z68.33 Body mass index [BMI] 33.0-33.9, adult; F41.9 Anxiety disorder, unspecified; F32.A Depression, unspecified; F10.229 Alcohol dependence with intoxication, unspecified; Z79.899 Other long term (current) drug therapy
CPT/HCPCS: 70487; 76700; 80048; 80053; 80143; 82077; 83036; 83605; 83690; 83735; 84145; 85025; 85027; 85652; 86140; 86705; 86706; 86709; 86803; 87070; 87340; Q9967

== ENCOUNTER → 2024-12-07 06:52 | Outpatient (REF) | payer OTHER, SELFPAY ==
[2024-12-07 07:53] LABS: Blood Urea Nitrogen 14 mg/dl (9-20); Calcium 9.4 mg/dl (8.4-10.2); Carbon Dioxide 27 mmol/L (22-30); Chloride 105 mmol/L (98-107); Glucose 104 mg/dl (70-99); Sodium 142 mmol/L (135-145); eGFR > 60.00
== END ==
LOC: REG 06:52
PROVIDERS: ATTENDING PHYSICIAN General Practice; FAMILY PHYSICIAN Student in an Organized Health Care Education/Training Program
DX: E87.6 Hypokalemia (principal)
CPT/HCPCS: 36415; 80048

== ENCOUNTER → 2024-12-12 07:19 | Outpatient (REF) | payer OTHER, SELFPAY ==
[2024-12-12 07:47] LABS: ALT (SGPT) 36 U/L (0-50); AST (SGOT) 28 U/L (17-59); Albumin 4.3 g/dl (3.5-5.0); Alkaline Phosphatase 79 U/L (38-126); Blood Urea Nitrogen 14 mg/dl (9-20); Calcium 9.7 mg/dl (8.4-10.2); Carbon Dioxide 29 mmol/L (22-30); Chloride 106 mmol/L (98-107); Glucose 99 mg/dl (70-99); Potassium 4.8 mmol/L (3.5-5.1); Sodium 141 mmol/L (135-145); Total Bilirubin 0.3 mg/dl (0.2-1.3); Total Protein 7.5 g/dl (6.3-8.2); eGFR > 60.00
[2024-12-12 07:52] LABS: % Eosinophils 1.5 % (0-6); % Immature Granulocytes 0.9 % (0-0.5); % Lymphocytes 30.5 % (20.5-51.1); % Monocytes 11.9 % (1.7-9.3); % Neutrophils 54.2 % (42.2-75.2); Absolute Basophils 0.1 10^3/uL (0-0.2); Absolute Eosinophils 0.1 10^3/uL (0-0.7); Absolute Immature Granulocytes 0.1 10^3/uL (0-0.05); Absolute Lymphocytes 1.8 10^3/uL (1.2-3.4); Absolute Monocytes 0.7 10^3/uL (0.1-0.6); Absolute Neutrophils 3.2 10^3/uL (1.4-6.5); Hematocrit 39.9 % (39.0-52.0); Hemoglobin 12.9 g/dL (13.0-18.0); Mean Corp Hgb Conc. 32.3 g/dL (33.0-37.0); Mean Corpuscular Hgb 30.9 pg (27.0-31.0); Mean Corpuscular Volume 95.7 fL (80.0-94.0); Mean Platelet Volume 9.1 fL (7.4-10.4); Nucleated Red Blood Cells % 0 % (-); Platelet Count 319 10^3/uL (130-400); Red Blood Cell Count 4.17 10^6/uL (4.70-6.10); Red Cell Dist. Width 16.6 % (11.5-14.5); White Blood Cell Count 5.8 10^3/uL (4.8-10.8)
== END ==
LOC: REG 07:19
PROVIDERS: ATTENDING PHYSICIAN Student in an Organized Health Care Education/Training Program
DX: Z09 Encounter for follow-up examination after completed treatment for conditions other than malignant neoplasm (principal); R79.89 Other specified abnormal findings of blood chemistry; Z87.898 Personal history of other specified conditions
CPT/HCPCS: 36415; 80053; 85025

== ENCOUNTER 2024-12-18 06:29 | Day surgery (SDC) | payer OTHER, SELFPAY | END 2024-12-18 14:32 | disposition home or self-care (01) | LOC: GI 06:29 | PROVIDERS: ATTENDING PHYSICIAN Internal Medicine | DX: D50.9 Iron deficiency anemia, unspecified (principal); K57.30 Diverticulosis of large intestine without perforation or abscess without bleeding; K64.8 Other hemorrhoids; R13.10 Dysphagia, unspecified; K44.9 Diaphragmatic hernia without obstruction or gangrene; K22.70 Barrett's esophagus without dysplasia; K63.5 Polyp of colon; K29.50 Unspecified chronic gastritis without bleeding; K22.711 Barrett's esophagus with high grade dysplasia | CPT/HCPCS: 43249; 45380; 43239; 88305; 88342 ==

== ENCOUNTER 2025-03-10 16:28 | Emergency (ER) | payer OTHER, SELFPAY ==
[2025-03-10 16:29] VITALS: BMI 31.2
[2025-03-10 16:30] VITALS: BP 138/119
[2025-03-10] MEDS: NSS 1000 IV (16:49)
[2025-03-10 17:16] LABS: Acetaminophen < 10 ug/ml (10-30); Salicylate < 1.0 mg/dl (2.0-20.0)
[2025-03-10 18:00] VITALS: BP 140/76
[2025-03-10] MEDS: ATIVAN 1 MG IV (18:38)
[2025-03-10 18:41] VITALS: BP 154/85
--- NOTE | 2025-03-10 23:28 | ED.GENMED ---
History of Present Illness
General
Chief Complaint: Alcohol Problem
Source: patient
Exam Limitations: none
Time Seen by Provider: 03/10/25 16:41
Nursing documentation reviewed up to this point in time: agreed with
History of Present Illness
History of Present Illness:
Patient to ED requesting inpatient treatment for alcohol abuse. Last drink with this afternoon. He denies inpatient rehab prior. He reports going thru withdrawal here while inpatient for medical issues. To ED accompanied by spouse
Past History
Past History
ED Past Medical History: GERD, HTN, Other (has had back pain since 02/2011. Had MRI with 20% compression fx T5. Had f/u MRI done 2 weeks ago and states he now has 50% compmression fx T6, herniated disc and arthritis in the spine.) and Other
(Pinzon's esophagus, diverticulitis, GERD)
ED Past Surgical History: Cholecystectomy and Other ([place] teeth)
Social History
Tobacco: Smoker
Alcohol: Daily
Drug: None
Personal: Single
Living: with family
Employment: Employed
Review of Systems
Review of Systems
Allergies reviewed?: Yes
All Other Systems: ROS reviewed and negative except as documented in HPI and ROS
Constitutional: Reports no symptoms
EENT: Reports no symptoms
Respiratory: Reports no symptoms
Cardiac: Reports no symptoms
ABD/GI: Reports no symptoms
: Reports no symptoms
Musculoskeletal: Reports no symptoms
Skin: Reports no symptoms
Neurological: Reports no symptoms
Psychiatric: Reports anxiety
Phy Exam
General Physical Exam
General Presentation: mild distress
General age: appears stated age
General Skin: warm and dry
General Habitus: normal
General Mental: alert
Cardiovascular Exam
Cardiovascular Exam: regular rate/rhythm and no edema
Neurological Exam
Neurological Exam: alert, oriented x3, CN II-XII intact, no motor deficits, no sensory deficits and speech normal
Musculoskeletal Exam
Musculoskeletal Exam: full ROM and neuro vasc intact
Skin Exam
Skin Exam: normal color, warm/dry and no rash
Psychiatric Exam
Psychiatric Exam: agitated
Scores
Withdrawal Assessment of Alcohol
Withdrawal Assessment Completed?: Yes
Nausea and Vomiting: Mild nausea with no vomiting
Tactile Disturbances: None
Tremor: Not visible, but can be felt fingertip to fingertip
Auditory Disturbances: Not present
Paroxysmal Sweats: No sweat visible
Visual Disturbances: Not present
Anxiety: Moderately anxious, or guarded, so anxiety is inferred
Headache, Fullness in Head: Not present
Agitation: Moderately fidgety and restless
Orientation and clouding of sensorium: Oriented and can do serial additions
Total CIWA Score: 10
Alcohol Withdrawal Medication Recommendation: Equal to MSAS Score 5-7. Lorazepam 1mg IV or PO NOW & re-assess q2hrs
Course
Orders/Labs/Results
Orders:
Orders
03/10/25 16:47
Acetaminophen Urgent
Alcohol Urgent
Drug Screen, Urine [Urine Drug Abuse Screen] Urgent
Date Specimen was Collected: 03/10/25
Time Specimen was Collected: 16:35
Salicylate Urgent
03/10/25 16:49
0.9% Sodium Chloride 1000 ml [Nss] 1,000 ml IV BOLUS
03/10/25 18:35
Lorazepam [Ativan] 1 mg IV NOW STA
Abnormal Lab Results
03/10/25
16:47
Salicylates < 1.0 L mg/dl
(2.0-20.0)
Acetaminophen < 10 L ug/ml
(10-30)
U Marijuana (THC) Screen Positive H
(Negative)
03/10/25 18:23
03/10/25 18:23
Vital Signs
Initial and Last Documented VS:
Initial Vital Signs
Temp Pulse Resp BP Pulse Ox
98.3 F 104 15 138/119 95
03/10/25 16:30 03/10/25 16:30 03/10/25 16:30 03/10/25 16:30 03/10/25 16:30
Last Documented Vital Signs
Temp Pulse Resp BP Pulse Ox
98.3 F 88 11 154/85 95
03/10/25 16:30 03/10/25 18:40 03/10/25 18:40 03/10/25 18:41 03/10/25 17:15
*Pulse Oximetry
SaO2: 95
Oxygen Mode of Delivery: Room air
Patient hypoxic: no
*Critical Care Note
Total Time (30-74mins, 75-104mins- exclusive of procedures): Not Applicable
Update Note
Update Note:
Cory spoke with patient by phone. Unable to secure inpatient care tonight. Patient is agreeable to returning home tonight. Cory will contact him in the AM with arrangements for care. He was given Ativan 1mg in ED for mild agitation. Given
rx for additional doses for tonight. Given instructions on use. Given instructions on s/s to return to ED and he is agreeable to plan.
ED Attending Note
-
Portions of this chart may have been created with voice recognition software.� Occasional wrong word or��sound alike� substitutions may have occurred due to the inherent limitations of voice recognition software.
Discharge Plan
Departure
Patient Disposition: Home (Routine Discharge)
Date of Disposition: 03/10/25
Time of Disposition: 18:36
Patient with high blood pressure during this ER visit?: No
Condition: Good
Covid-19: Not Applicable
Discharge Problem:
Alcohol abuse
Instructions: Alcohol Use Disorder (DC)
Prescriptions:
New
lorazepam [Ativan] 1 mg tablet
1 mg PO TID PRN (Reason: alcohol withdrawal) Qty: 10 0RF
No Action
trazodone 50 mg Tablet
50 mg PO HSPRN PRN (Reason: sleep)
ibuprofen 400 mg Tablet
400 mg PO Q6HPRN PRN (Reason: mild pain)
bupropion HCl [Wellbutrin XL] 300 mg Tablet Extended Release 24 Hr
300 mg PO DAILY
tadalafil 5 mg Tablet
5 mg PO DAILYPRN PRN (Reason: ED)
pantoprazole 20 mg Tablet,Delayed Release (Dr/Ec)
40 mg PO DAILY 30 Days Qty: 60 0RF
potassium chloride 20 mEq Tablet,Er Particles/Crystals
20 meq PO BID 14 Days Qty: 28 0RF
folic acid 1 mg Tablet
1 mg PO DAILY 30 Days Qty: 30 0RF
thiamine mononitrate (vit B1) 100 mg Tablet
100 mg PO DAILY 30 Days Qty: 30 0RF
doxycycline hyclate 100 mg capsule
100 mg PO BID Qty: 10 0RF
(DME) Basic metabolic panel
See Rx Instructions .Route .MEDSUPPLY Qty: 1 0RF
Rx Instructions:
To be done after 1 week.
Diagnosis: Hypokalemia
magnesium oxide 400 mg (241.3 mg magnesium) tablet
400 mg PO DAILY Qty: 30 0RF
gabapentin 100 mg capsule
100 mg PO DIRECTED Qty: 30 0RF
Rx Instructions:
take 100 mg 3 times daily for 5 days then twice daily for 5 days then once daily for 5 days.
Referrals:
Jaky Rizo MD [Family Provider, Internal Medicine]
Activity Restrictions/Additional Instructions:
[facility] will contact you in the AM to set up inpatient treatment.
Interventions
Interventions:
*Risk Screen - Suicide Last Done: 03/10/25 16:33
*General Assessment Last Done: 03/10/25 16:33
*Neglect/Abuse Screening Last Done: 03/10/25 16:33
*ED- Fall Risk Assessment Last Done: 03/10/25 16:30
*ED COVID-19 Vaccine History Last Done: 03/10/25 16:33
*Nursing Disposition Last Done: 03/10/25 18:50
ED- Neurological Assessment Last Done: 03/10/25 16:34
ED-Psychological Assessment Last Done: 03/10/25 16:34
Discharge Date and Time
Discharge Date/Time: 03/10/25 18:51
Print Language: CITIZEN OF [place]
== END 2025-03-10 18:51 | disposition home or self-care (01) ==
LOC: EMR 16:28
PROVIDERS: EMERGENCY PHYSICIAN Emergency Medicine; FAMILY PHYSICIAN Student in an Organized Health Care Education/Training Program
DX: F10.10 Alcohol abuse, uncomplicated (principal); I10 Essential (primary) hypertension; E87.6 Hypokalemia; F17.200 Nicotine dependence, unspecified, uncomplicated; Z87.19 Personal history of other diseases of the digestive system; Z90.49 Acquired absence of other specified parts of digestive tract
CPT/HCPCS: 99282; 96374; 96361; 80143; 80179; 80306; 82077

== ENCOUNTER → 2025-05-30 06:59 | Outpatient (REF) | payer OTHER, SELFPAY | LOC: HWRAD 06:59 | PROVIDERS: ATTENDING PHYSICIAN Student in an Organized Health Care Education/Training Program; FAMILY PHYSICIAN Student in an Organized Health Care Education/Training Program | DX: R05.3 Chronic cough (principal); R09.89 Other specified symptoms and signs involving the circulatory and respiratory systems; Z87.01 Personal history of pneumonia (recurrent) | CPT/HCPCS: 71046 ==